=== PATIENT | female | born 1950 | race Caucasian/White ===

== ENCOUNTER 2024-10-18 09:38 | Emergency (ER) | payer OTHER, MEDICARE, SELFPAY ==
[2024-10-18 09:43] VITALS: BP 176/78
--- NOTE | 2024-10-18 10:49 | EDRN ---
Dr. Ayala in room w/ pt at this time.
--- NOTE | 2024-10-18 11:02 | ED.GENMED ---
History of Present Illness
General
Chief Complaint: Generalized Pain
Source: patient and family
Exam Limitations: none
Time Seen by Provider: 10/18/24 10:32
Nursing documentation reviewed up to this point in time: agreed with
History of Present Illness
History of Present Illness:
The patient is a very pleasant 74-year-old female who reports acute on chronic right thoracic pain, extending from her right mid back to under her right breast area and extending down to right upper abdominal area, which she attributes to her
typical severe shingles pain. Patient reports she has been experiencing this type of severe pain for 3 years. She reports that she is followed by pain management doctor on a monthly basis and has an appointment with pain management tomorrow.
Patient reports that the pain has become particularly bad over the last 2 weeks. She reports that one of the pain medications that she takes, pregabalin, she is only been taking once a day instead of twice a day for the last few weeks, which may be
contributing to this increased pain. Patient denies fever and new rash. She denies any other symptom. She describes it as a burning severe pain which is typical for her.
Past History
Past History
ED Past Medical History: Cancer and HTN
ED Past Surgical History: Other
Social History
Tobacco: Non-smoker
Alcohol: None
Drug: None
Personal:
Living: with family
Employment: Retired
Family History
Family History: Other (Noncontributory)
Review of Systems
Review of Systems
Allergies reviewed?: Yes
All Other Systems: ROS reviewed and negative except as documented in HPI and ROS
Constitutional: Reports no symptoms
EENT: Reports no symptoms
Respiratory: Reports no symptoms
Cardiac: Reports no symptoms
ABD/GI: Reports no symptoms
: Reports no symptoms
Musculoskeletal: Reports no symptoms
Skin: Reports no symptoms
Neurological: Reports no symptoms
Endocrine: Reports no symptoms
Hematologic/Lymphatic: Reports no symptoms
Psychiatric: Reports no symptoms
Phy Exam
Physical Exam
Physical Exam:
Physical Exam
General: Appears uncomfortable but nontoxic
Neck: supple. no meningeal signs. normal psoterior pharynx
Heart: s1/s2 regular rate and rhythm, no murmur. equal radial pulses.
Lungs: no acute respiratory distress. clear bilaterally
Abdomen: normal bowel sounds. not tender. no CVAT
Neuro: alert and oriented. no focal neurological deficits
Skin: no rash
Psychiatric: well kept. interactive and cooperative
Extremities: no edema. no calf tenderness. negative homans. good distal pulses
Course
Orders/Labs/Results
Orders:
Orders
10/18/24 10:54
HYDROmorphone [Dilaudid] 2 mg PO NOW STA
Ondansetron Orally Disint [Zofran Odt (Orally Disintegrating)] 4 mg PO NOW STA
Vital Signs
Initial and Last Documented VS:
Initial Vital Signs
Pulse Resp BP Pulse Ox
88 18 176/78 97
10/18/24 09:43 10/18/24 09:43 10/18/24 09:43 10/18/24 09:43
Last Documented Vital Signs
Temp Pulse Resp BP Pulse Ox
98.8 F 61 16 112/58 96
10/18/24 09:44 10/18/24 12:25 10/18/24 12:25 10/18/24 12:25 10/18/24 12:25
MDM/Problems Addressed
Differential Diagnosis Includes:
Acute on chronic pain attributed to shingles, new shingles, acute cholecystitis
MDM/Problems Addressed:
Patient presents with severe pain which she attributes to chronic shingles pain
Chronic conditions affecting care:
Chronic shingles pain
Acute Exacerbation and/or Progression of Chronic Illness:
Patient likely has acute exacerbation of chronic shingles pain
*Pulse Oximetry
Patient hypoxic: no
*EKG
Interpreted by ED Provider?: NA
*E Business Consultant Interpretation
Rate: E Business Consultant- N/A
*Critical Care Note
Total Time (30-74mins, 75-104mins- exclusive of procedures): Not Applicable
Data Reviewed
Review of Other/Old Records Reveals: Discharge Summary (History and physical reviewed from 2022 when patient was admitted for hematoma due to coagulopathy)
Source: patient and family
Update Note
Update Note:
1:20 PM patient feels much more comfortable. Pain is much more manageable. Patient has appointment with pain management doctor this week and will follow-up
ED Attending Note
-
Portions of this chart may have been created with voice recognition software.� Occasional wrong word or��sound alike� substitutions may have occurred due to the inherent limitations of voice recognition software.
Discharge Plan
Departure
Patient Disposition: Home (Routine Discharge)
Date of Disposition: 10/18/24
Time of Disposition: 13:20
Patient with high blood pressure during this ER visit?: No
Condition: Good
Covid-19: Not Applicable
Discharge Problem:
acute on chronic pain
Instructions: Chronic Pain (DC)
Prescriptions:
New
hydromorphone [Dilaudid] 2 mg tablet
2 mg PO Q6H PRN (Reason: Pain) Qty: 7 0RF
ondansetron 4 mg tablet,disintegrating
4 mg PO Q8H PRN (Reason: nausea and vomiting) Qty: 10 0RF
No Action
methocarbamol 500 mg Tablet
1,000 mg PO QID PRN (Reason: MUSCLE SPASMS)
acetaminophen-codeine 300-30 mg Tablet
1 tab PO HS
Patient Comments:
09/13/2022: last filled 08/30/22, 30 tabs for 30 days from [facility]
lisinopril 2.5 mg Tablet
2.5 mg PO DAILY
tramadol 50 mg Tablet
50 mg PO Q6HPRN PRN (Reason: severe pain) 3 Days Qty: 15 0RF
gabapentin 300 mg Capsule
300 mg PO TID 30 Days Qty: 90 0RF
Eliquis 2.5 mg tablet
2.5 mg PO BID 30 Days Qty: 60 0RF
lidocaine [Aspercreme (lidocaine)] 4 % Adhesive Patch,Medicated
1 patch topical DAILY 14 Days Qty: 14 0RF
Remove Patch [Remove Lidocaine Patch]
1 patch REMOVE DAILY@1999 14 Days Qty: 14 0RF
Referrals:
Carlos Hernandez MD [Family Provider] -
Activity Restrictions/Additional Instructions:
Take the Zofran along with the Dilaudid to prevent any nausea. Please follow-up with your pain management doctor in 1 to 2 days
Interventions
Interventions:
*Risk Screen - Suicide Last Done: 10/18/24 09:43
*General Assessment Last Done: 10/18/24 11:07
*Neglect/Abuse Screening Last Done: 10/18/24 09:43
ED- Fall Risk Assessment Last Done: 10/18/24 11:07
*ED COVID-19 Vaccine History Last Done: 10/18/24 11:07
Discharge Date and Time
Print Language: MAURITIAN
[2024-10-18] MEDS: ZOFRAN ODT (ORALLY DISINTEGRATING) 4 MG PO (11:06)
[2024-10-18] MEDS: DILAUDID 2 MG PO (11:08)
[2024-10-18 11:12] VITALS: BP 125/79
[2024-10-18 12:25] VITALS: BP 112/58
== END 2024-10-18 14:12 | disposition home or self-care (01) ==
LOC: EMR 09:38
PROVIDERS: EMERGENCY PHYSICIAN Emergency Medicine; FAMILY PHYSICIAN Family Medicine
DX: M54.6 Pain in thoracic spine (principal); G89.29 Other chronic pain; I10 Essential (primary) hypertension
CPT/HCPCS: 99283